=== PATIENT | female | born 1985 | race Two or more races ===

== ENCOUNTER 2017-05-16 16:04 | Emergency (ER) | payer MEDICAID, OTHER ==
[~2017-05-16] VITALS: Ht 152.4 cm; Wt 56.8 kg
[2017-05-16 16:13] VITALS: BP 132/95
[2017-05-16] MEDS ORDERED: DEXAMETHASONE 4 MG TABLET PO ONE (17:30)
[2017-05-16] MEDS ORDERED: DEXAMETHASONE 4 MG TABLET ONE (17:38)
== END 2017-05-16 17:50 | disposition home or self-care (01) ==
LOC: ED 17:44
DX: J02.0 Streptococcal pharyngitis (principal)
CPT/HCPCS: 99283